=== PATIENT | female | born 1950 | race Caucasian/White ===

== ENCOUNTER 2018-03-19 09:09 | Day surgery (SDC) | payer MEDICARE ==
[~2018-03-19] VITALS: Ht 162.6 cm; Wt 56.1 kg
[~2018-03-19 09:09] MED LIST: ACET120S; GABA600 PO; GLYC2; Mirtazapine7.5 MG PO; OMEP20ER; Zegerid 40 MG1 EACH PO
[2018-03-19] MEDS ORDERED: TRAM50 (09:38)
== END 2018-03-19 10:30 | disposition home or self-care (01) ==
LOC: ORSCSDS 09:09
PROVIDERS: Internal Medicine Gastroenterology
PROC: 0DB58ZX Excision of Esophagus, Via Natural or Artificial Opening Endoscopic, Diagnostic (ICD-10-PCS; principal; 2018-03-19 10:15)
DX: Z85.01 Personal history of malignant neoplasm of esophagus (principal); K21.9 Gastro-esophageal reflux disease without esophagitis; M79.7 Fibromyalgia; Z86.73 Personal history of transient ischemic attack (TIA), and cerebral infarction without residual deficits; Z87.891 Personal history of nicotine dependence; Z79.899 Other long term (current) drug therapy
CPT/HCPCS: 88305; 88312; J7120

== ENCOUNTER → 2018-04-23 | Outpatient (CLI) | payer MEDICARE ==
[~2018-04-23] MED LIST changes: +TRAM50
== END ==
LOC: LAB EV 11:41 → LAB SHORT 11:41
DX: N39.0 Urinary tract infection, site not specified (principal)
CPT/HCPCS: 87077; 87086; 87186

== ENCOUNTER → 2018-05-10 | Outpatient (CLI) | payer MEDICARE | END | disposition home or self-care (01) | LOC: LAB EV 12:24 → LAB SHORT 12:24 | DX: N39.0 Urinary tract infection, site not specified (principal) | CPT/HCPCS: 87086 ==

== ENCOUNTER → 2020-10-22 | Outpatient (CLI) | payer MEDICARE | END | disposition home or self-care (01) | LOC: LAB 16:07 | DX: R35.0 Frequency of micturition (principal) | CPT/HCPCS: 87077; 87086; 87186 ==

== ENCOUNTER → 2020-11-03 | Outpatient (CLI) | payer MEDICARE | LOC: LAB SHORT 11:08 | DX: N89.8 Other specified noninflammatory disorders of vagina (principal); R35.0 Frequency of micturition | CPT/HCPCS: 87070; 87086; 87205 ==